=== PATIENT | female | born 1995 | race American Indian/Alaskan Native ===

== ENCOUNTER 2017-02-21 00:29 | Emergency (ER) | payer OTHER ==
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
[2017-02-21 04:03] VITALS: BP 120/78
--- NOTE | 2017-02-21 07:38 | XRay Report ---
AP CHEST: HISTORY: chest pain AP view of the chest demonstrates a normal mediastinal and cardiac contour with clear lungs and normal bony and soft tissue structures. IMPRESSION: Unremarkable AP chest.
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
== END 2017-02-21 04:03 | disposition home or self-care (01) ==
LOC: ED 00:29
DX: S29.011A Strain of muscle and tendon of front wall of thorax, initial encounter (principal); V49.59XA Passenger injured in collision with other motor vehicles in traffic accident, initial encounter; Y92.488 Other paved roadways as the place of occurrence of the external cause; Y93.89 Activity, other specified; Y99.9 Unspecified external cause status
CPT/HCPCS: 71010; 72040

== ENCOUNTER 2020-11-21 14:47 | Emergency (ER) | payer SELFPAY ==
[2020-11-21 17:19] LABS: Basophils % (Auto) 0.1 % (0.0-1.8); Eosinophils % (Auto) 0.1 % (0.0-4.3); Hematocrit 37.4 % (30.3-42.9); Lymphocytes % (Auto) 5.8 % (13.4-35.0); Mean Corpuscular HGB Conc 35 % (30-34); Mean Corpuscular Volume 91 fl (79-97); Monocytes # (Auto) 0.9 K/mm3 (0.0-0.8); Monocytes % (Auto) 5.1 % (0.0-7.3); Platelet Count 215 K/mm3 (140-440); Red Blood Count 4.09 M/mm3 (3.65-5.03); Red Cell Distribution Width 12.1 % (13.2-15.2)
[2020-11-21 17:30] LABS: Bacteria,Urine 1+ /HPF (Negative); Bilirubin,Urine NEG (Negative); Blood,Urine LG (Negative); Color,Urine Yellow (Yellow); Mucus,Urine 2+ /HPF
[2020-11-21 17:41] LABS: RBC,Urine > 182.0 /HPF (0.0-6.0)
[2020-11-21 17:43] LABS: Alanine Aminotransferase 10 units/L (7-56); Albumin 4.2 g/dL (3.9-5); Blood Urea Nitrogen 9 mg/dL (7-17); Calcium 9.1 mg/dL (8.4-10.2); Hemolysis Index 7
[2020-11-21 17:58] LABS: BUN/Creatinine Ratio 18
[2020-11-21] MEDS ORDERED: LIDOCAINE-MPF (1%) 10 MG/1 ML VIAL 5 ML INFILTRATI ONE (17:59)
--- NOTE | 2020-11-21 17:59 | Emergency Department Report ---
ED Female HPI - General Chief complaint: Vaginal Bleeding Stated complaint: CYST Time Seen by Provider: 11/21/20 17:58 Source: patient Mode of arrival: Ambulatory Limitations: No Limitations - History of Present Illness Initial comments: 25-year-old female presents to the ER today with complaints of abnormal vaginal bleeding and vaginal cysts. Patient states that she started with what she assumed was her menstrual cycle on November 18. She states that her menstrual cycle really was supposed to start on November 27 but for some reason started on the eight h. At the time it started she noticed a small lump to her left labia area but at the time it was not painful. She states that the area started to become increasingly painful and swollen about 2 days ago and yesterday it drained a lot of pus. She states that he still feels uncomfortable and is still feel swollen. She states that the bleeding she is having is similar to that of her and she has only been changing 1 pad per day. She reports some discomfort in her left groin but otherwise denies any significant pelvic pain or abdominal pain or abnormal vaginal discharge. She denies any UTI symptoms, fever or chills. She states that she has had a Bartholin cyst in the past but did not have to be I&D. She is not currently on any control. MD Complaint: vaginal bleeding, other (Tender swollen area to the left labia) -: Gradual (11/18/20) - Related Data Previous Rx's Medication Instructions Recorded Last Taken Type methOCARBAMOL [Robaxin TAB] 500 mg PO Q6H PRN #14 tablet 02/21/17 Unknown Rx Ibuprofen [Motrin] 600 mg PO Q8H PRN #30 tablet 11/21/20 Unknown Rx Sulfamethoxazole/Trimethoprim 1 each PO BID #14 tablet 11/21/20 Unknown Rx [Bactrim DS TAB] cephALEXin [Keflex] 500 mg PO Q6HR #40 capsule 11/21/20 Unknown Rx Allergies Allergy/AdvReac Type Severity Reaction Status Date / Time No Known Allergies Allergy Unverified 11/21/20 16:51 ED Review of Systems ROS: Stated complaint: CYST Other details as noted in HPI Comment: All other systems reviewed and negative Constitutional: denies: chills, diaphoresis, fever, malaise, weakness Eyes: as per HPI. denies: eye discharge, vision change ENT: denies: ear pain, throat pain, dental pain, hearing loss, epistaxis, congestion Respiratory: denies: cough, shortness of breath, SOB with exertion, SOB at rest, stridor, wheezing Cardiovascular: denies: chest pain, palpitations, dyspnea on exertion, edema, syncope, paroxysmal nocturnal dyspnea Gastrointestinal: as per HPI. denies: abdominal pain, nausea, vomiting, diarrhea, constipation, hematemesis, melena, hematochezia Genitourinary: abnormal menses. denies: urgency, dysuria, frequency, hematuria, discharge, dyspareunia Musculoskeletal: denies: back pain, joint swelling, arthralgia, myalgia Skin: rash, other (Tender swollen area left labia). denies: lesions, change in color, change in hair/nails, pruritus Neurological: denies: headache, weakness, paresthesias Psychiatric: denies: anxiety, depression, auditory hallucinations, visual hallucinations, homicidal thoughts, suicidal thoughts Hematological/Lymphatic: denies: easy bleeding, easy bruising ED Past Medical Hx - Past Medical History Previous Medical History?: Yes Additional medical history: Vaginal cyst in past - Surgical History Past Surgical History?: No - Social History Smoking Status: Never Smoker Substance Use Type: None - Medications Home Medications: Home Medications Medication Instructions Recorded Confirmed Last Taken Type methOCARBAMOL [Robaxin TAB] 500 mg PO Q6H PRN #14 tablet 02/21/17 Unknown Rx Ibuprofen [Motrin] 600 mg PO Q8H PRN #30 tablet 11/21/20 Unknown Rx Sulfamethoxazole/Trimethoprim 1 each PO BID #14 tablet 11/21/20 Unknown Rx [Bactrim DS TAB] cephALEXin [Keflex] 500 mg PO Q6HR #40 capsule 11/21/20 Unknown Rx ED Physical Exam - General Limitations: No Limitations General appearance: alert, in no apparent distress - Head Head exam: Present: atraumatic, normocephalic, normal inspection - Eye Eye exam: Present: normal appearance, PERRL, EOMI Pupils: Present: normal accommodation - ENT ENT exam: Present: normal exam, mucous membranes moist - Neck Neck exam: Present: normal inspection, full ROM - Respiratory Respiratory exam: Present: normal lung sounds bilaterally. Absent: respiratory distress, wheezes, rales, rhonchi - Cardiovascular Cardiovascular Exam: Present: regular rate, normal rhythm, normal heart sounds - GI/Abdominal GI/Abdominal exam: Present: soft. Absent: distended, tenderness, guarding, rebound - External exam: Present: other (Swollen Bartholin cyst noted to the left labia with associated mild induration to the tissue but no fluctuance noted no cellulitis. There is some slight bleeding coming from the duct but no pus and there is mild tenderness to palpation.) Speculum exam: Present: vaginal bleeding (moderate amount of blood noted in the vaginal vault). Absent: vaginal discharge, foreign body, tissue, laceration, other - Extremities Exam Extremities exam: Present: normal inspection - Back Exam Back exam: Present: normal inspection - Neurological Exam Neurological exam: Present: alert, oriented X3, CN II-XII intact, normal gait - Psychiatric Psychiatric exam: Present: normal affect, normal mood - Skin Skin exam: Present: intact ED Course Vital Signs 11/21/20 16:47 Temperature 98.4 F Pulse Rate 78 Respiratory 18 Rate Blood Pressure 104/76 O2 Sat by Pulse 99 Oximetry ED Medical Decision Making - Lab Data Result diagrams: 11/21/20 17:04 11/21/20 17:04 - Medical Decision Making 1841: Patient presented to the ER with complaints of abnormal vaginal bleeding and vaginal cyst. On exam it shows that patient has an already draining Bartholin's abscess but there is still some induration around the site but no fluctuance and no cellulitis. No additional I&D is at this time. Labs reviewed, CBC that shows elevated white count of 17,000 but otherwise unremarkable and CMP also unremarkable with a negative hCG. UA is concerning for UTI, culture is pending. Patient is well-appearing, not toxic and not in any acute distress. She denies any abdominal pain pelvic pain and she has a soft nontender abdomen. She is appears well-hydrated. She is neurologically intact. She is afebrile and her remaining vitals are stable. No evidence of sepsis. IM rocephin given here in the ER and she will be discharged home on Bactrim and Keflex. Recommend that she follows up with her DEPUTY DIRECTOR. Patient was stable at time of discharge. Critical care attestation.: If time is entered above; I have spent that time in minutes in the direct care of this critically ill patient, excluding procedure time. ED Disposition Clinical Impression: Bartholin's gland abscess, UTI (urinary tract infection), Abnormal vaginal bleeding Disposition: DC- TO HOME OR SELFCARE Is pt being admited?: No Does the pt Need Aspirin: No Condition: Stable Instructions: Abnormal Uterine Bleeding, Urinary Tract Infection, Adult, [id number], Bartholin's Cyst, [id number] Additional Instructions: Take the Bactrim and Keflex as prescribed. Take the ibuprofen as needed for pain. Drink lots of water. Recommend warm compresses about 2 times a day to the area to help with swelling and pain. Follow-up with the DEPUTY DIRECTOR listed on your discharge instructions. Return to the ER if your symptoms worsens or changes in any way. Prescriptions: Sulfamethoxazole/Trimethoprim [Bactrim DS TAB] 1 each PO BID #14 tablet cephALEXin [Keflex] 500 mg PO Q6HR #40 capsule Ibuprofen [Motrin] 600 mg PO Q8H PRN #30 tablet PRN Reason: Pain Referrals: [facility] [Provider Group] - 3-5 Days [facility] [Provider Group] - 3-5 Days Forms: Work/School Release Form(ED) Time of Disposition: 18:38
[2020-11-21 18:35] VITALS: BP 104/76
== END 2020-11-21 19:11 | disposition home or self-care (01) ==
LOC: ED 14:47
DX: N75.1 Abscess of Bartholin's gland (principal); N39.0 Urinary tract infection, site not specified; N93.9 Abnormal uterine and vaginal bleeding, unspecified; Z79.1 Long term (current) use of non-steroidal anti-inflammatories (NSAID); Z79.899 Other long term (current) drug therapy
CPT/HCPCS: 36415; 80053; 81001; 83690; 84703; 85025; 87086; 96372; 99283; J0696